=== PATIENT | female | born 1980 | race Caucasian/White ===

== ENCOUNTER 2024-07-11 10:20 | Outpatient (AMB) | payer OTHER, SELFPAY ==
--- NOTE | 2024-07-11 10:23 | A.OFFPC_ITS ---
Vital Signs 07/11/24 10:25 Height 5 ft 2 in Weight 164 lb 2 oz BMI 30.0 BP 96/60 Blood Pressure Location Lt brachial Position Sitting Pulse 67 Pulse Source Pulse Oximeter Pulse Oximetry (%) 100 Oxygen Delivery Method Room Air Intake Visit Reasons: Strategy Lead regular visit Stone And Concrete Washer Required: No Accompanied by: Self / Same As Patient Is last menstrual period known: Yes Last menstrual period: 06/25/24 Allergies pertussis vaccine,fluid Adverse Reaction (Severe, Verified 07/11/24 10:36) seizure Medication List - Last Reconciled 07/11/24 by Samuel Costello PA-C No Known Home Meds Tobacco use date assessed: 07/11/24 Dental Screening Dental Screen Date: 07/11/24 Did you have a dental visit in the last 12 months?: Yes Did you have a dental problem in the last 6 months where you did not have access to dental care?: No Was dental information given to patient?: Patient has dentist HPI Strategy Lead regular visit HPI Details Patient is a 43-year-old female here today for new patient visit. Previous PCP was Previous history of DVT in 2010 during , borderline high cholesterol. .. High cholesterol: Has been a family history finding. She reports her cholesterol has been elevated at her PCP office. Has been working on lifestyle and dietary modifications. .. Insomnia: Has been a long-term issue for her to which she has tried anxiety medication past though had side effects of weight gain. She has been using 10 mg of THC gummies for sleep which has been effective though she is concerned about the dependency on this substance. PLAN: She will try to slowly wean her dose of oral THC .. Family history factor 2 deficiency: She reports her sister had a pulmonary embolism was positive factor 2 deficiency and genetic testing. She would like to do her own genetic testing for evaluation. Mammogram: Does get mammo at [facility] Vaccines: does see a ERP CONSULTANT at [facility] getting regular paps Vaccine: Up-to-date with flu vaccine, COVID vaccine and tetanus vaccine [facility] Family History (Updated 07/11/24 @ 11:06 by Samuel Costello PA-C) Father Bladder cancer Diabetes Mother High cholesterol Sister Pulmonary embolism Factor II deficiency Social History (Updated 07/11/24 @ 10:41 by Samuel Costello PA-C) Housing: House Alcohol intake: current Alcohol intake frequency: holidays/special occasions only Patient Tobacco Use Status: Never used Tobacco e-Cigarette/Vaping Use: Never Used Substance Use Type: Marijuana service: No Current occupational status: employed Current occupation: [employer] Cognitive needs: No Hearing needs: No Vision needs: No Female Reproductive History Menstrual Date of last menstrual period: 06/25/24 Questionnaire PHQ-9 Over the last 2 weeks, how often have you been bothered by any of the following problems? 1. Little interest or pleasure in doing things: not at all 2. Feeling down, depressed, or hopeless: not at all 3. Trouble falling or staying asleep, or sleeping too much: several days 4. Feeling tired or having little energy: not at all 5. Poor appetite or overeating: not at all 6. Feeling bad about yourself - or that you are a failure or have let yourself or your family down: not at all 7. Trouble concentrating on things, such as reading the newspaper or watching television: not at all 8. Moving or speaking so slowly that other people could have noticed. Or the opposite - being so fidgety or restless that you have been moving around a lot more than usual: not at all 9. Thoughts that you would be better off or of hurting yourself in some way: not at all Total score: 1 Depression Screening Interpretation: Negative Depression Screening Done: Yes 58930 - PHQ-9 Billing: Yes Source: Developed by Drs. Jeremias Wagner, Heide Lloyd, Phi Moreira and colleagues, with an educational jimbo from [employer]. Thrive Questionnaire Date Thrive assessed: 07/11/24 I am a: Patient What is your living situation today?: I have a steady place to live Within the past 12 months, did the food you bought not last and you didn't have the money to get more?: Never true Within the past 12 months, did you worry whether your food would run out before you got money to buy more?: Never true Do you have trouble paying for medicines?: No Do you have trouble getting transportation to medical appointments?: No Do you have trouble paying your heating and electricity bill?: No Do you have trouble taking care of your child, family member or friend?: No Do you have trouble with day-to-day activities such as bathing, preparing meals, shopping, managing finances, etc.?: No Are you currently unemployed and looking for a job?: No Are you interested in more education?: No Please select the resources that you would like help with: None Currently or been in a relationship where the following occur: No concerns reported THRIVE Score: 0 AUDIT C Alcohol Use Questionnaire (AUDIT-C) 1. How often do you have a drink containing alcohol?: Monthly or less 2. How many drinks containing alcohol do you have on a typical day when you are drinking?: 1 or 2 3. How often do you have six or more drinks on one occasion?: Never Total Score: 1 MILANA-7 AMB Questionnaire MILNAA-7 Date MILANA - 7 assessed: 07/11/24 Feeling nervous, anxious, or on edge: 1 = Several days Not being able to stop or control worryin = Not at all Worrying too much about different things: 1 = Several days Trouble relaxin = Several days Being so restless that it is hard to sit still: 0 = Not at all Becoming easily annoyed or irritable: 0 = Not at all Feeling afraid as if something awful might happen: 1 = Several days Total MILANA-7 score (0-4 normal; 5-9 mild; 10-14 moderate; 15-21 severe): 4 Source: Developed by Drs. Jeremias Wagner, Heide Lloyd, Phi Moreira and colleagues, with an educational jimbo from [employer]. MILANA-7 Assessment Billing MILANA-7 Assessment Tool: MILANA-7 Assessment 21264 Physical exam (Primary Care) Vital Signs: Last Vital Signs Pulse 67 07/11/24 10:25 BP 96/60 07/11/24 10:25 Pulse Ox 100 07/11/24 10:25 Oxygen Delivery Method Room Air 07/11/24 10:25 BMI result Body Mass Index 30.0 Tobacco/Smoking Status: Tobacco use Status Tobacco use date assessed 07/11/24 07/11/24 10:32 Patient Tobacco Use Status Never used Tobacco 07/11/24 10:32 e-Cigarette/Vaping Use Never Used 07/11/24 10:32 PHQ-9: PHQ-9 Score PHQ-9: Total score 1 07/11/24 10:32 Depression Screening Interpretation: Negative Thrive Assessment: Date of Thrive Assessment Date Thrive assessed 07/11/24 07/11/24 10:32 Currently or been in a relationship where the following occur: No concerns reported Office Procedures Flu Questionnaire Does the patient have a severe egg allergy?: No Immunizations Fluarix Triv [id number] (PF) 45 mcg (15 mcg x 3)/0.5 mL IM syringe Performing Provider: Samuel Costello PA-C Performing Location: [facility] Documented (not given) by: SAGAR Lopez on 07/11/24 10:33 Reason Not Given: Received Previously Coding Level of Care Code New Pt Level 4 (48829) Diagnoses Primary insomnia F51.01 Insomnia type: primary Screening for diabetes mellitus (DM) Z13.1 Mixed hyperlipidemia E78.2 Hyperlipidemia type: mixed hyperlipidemia Family history of factor V deficiency Z83.2 H/O deep venous thrombosis Z86.718 Additional Codes MILANA-7 Assessment Billing - MILANA-7 Assessment Tool: MILANA-7 Assessment 12100 ([id number]) PHQ-9 - 93162 - PHQ-9 Billing: Yes ([id number]) Assessment & Plan Assessment & Plan (1) Insomnia: Code(s): G47.00 - Insomnia, unspecified Category: Medical Qualifiers: Insomnia type: primary Qualified Code(s): F51.01 - Primary insomnia Plan: Almaz has been suffering with insomnia for many years. Has been on anxiety medication in the past though has side effects of weight gain. She does use 10 mg THC gummies which do offer her sleep though is worried about did dependency. She will try to wean off of TCH gummies over the next few months to see if she can go without sleeping medication. Did offer to look into many different sleeping aids and prescription medication for sleep. We did consider referral to sleep specialist (2) Screening for diabetes mellitus (DM): Code(s): Z13.1 - Encounter for screening for diabetes mellitus Category: Medical Plan: As per HPI (3) HLD (hyperlipidemia): Code(s): E78.5 - Hyperlipidemia, unspecified Category: Medical Qualifiers: Hyperlipidemia type: mixed hyperlipidemia Qualified Code(s): E78.2 - Mixed hyperlipidemia Plan: She does have family history of high cholesterol. Will check fasting lipid panel. Goal LDL to be below 190 (4) Family history of factor V deficiency: Code(s): Z83.2 - Family history of diseases of the blood and blood-forming organs and certain disorders involving the immune mechanism Category: Medical Plan: Patient has a family history of clotting factor deficiency. She would like to see a linderman machine operator. She does have a personal history of DVT during her 1st . (5) H/O deep venous thrombosis: Code(s): Z86.718 - Personal history of other venous thrombosis and embolism Category: Medical Plan: As above Orders: Orders Influenza [id number] Immunization Today Z23 - Encounter for immunization [facility]. Panel Fast Today Z13.1 - Encounter for screening for diabetes mellitus Lipid Panel Today E78.5 - Hyperlipidemia, unspecified Complete Blood Count no Diff Today E78.5 - Hyperlipidemia, unspecified Referrals Genetics Referral Z83.2 - Family history of diseases of the blood and blood- forming organs and certain disorders involving the immune mechanism
[2024-07-11 10:25] VITALS: BP 96/60; PULSE 67; O2SAT 100
== END 2024-07-11 11:06 | disposition home or self-care (01) ==
PROVIDERS: PCP Physician Assistant; Visit Provider Physician Assistant
DX: F51.01 Primary insomnia (principal); Z13.1 Encounter for screening for diabetes mellitus; E78.2 Mixed hyperlipidemia; Z83.2 Family history of diseases of the blood and blood-forming organs and certain disorders involving the immune mechanism; Z86.718 Personal history of other venous thrombosis and embolism; Z23 Encounter for immunization

== ENCOUNTER → 2024-07-11 10:20 | Outpatient (BNVA) | payer OTHER, SELFPAY | PROVIDERS: PCP Physician Assistant; Visit Provider Physician Assistant | DX: E78.2 Mixed hyperlipidemia (principal); F51.01 Primary insomnia; Z83.2 Family history of diseases of the blood and blood-forming organs and certain disorders involving the immune mechanism; Z86.718 Personal history of other venous thrombosis and embolism | CPT/HCPCS: 90471; 96127; 99202 ==

== ENCOUNTER 2024-08-08 07:57 | Outpatient (REF) | payer OTHER, SELFPAY ==
--- OUTSIDE RECORDS SUMMARY | 2024-08-08 08:45 | XMS_ITS | Clinical Summary ---
Author Organization [facility] Address [address] [place] [address] Phone Care Team Providers Care Resizer Operator Name Role Phone Ramona Titus DO Primary Care Provider [phone] Allergies Active Allergy Reactions Criticality Noted Date Comments Pertussis Vaccines 07/30/2011 seizure Medications Medication Sig Dispensed Refills Start Date End Date Status ondansetron ODT (ZOFRAN-ODT) 4 mg disintegrating tablet DISSOLVE 1 TABLET IN MOUTH THREE TIMES A DAY FOR 5 DAYS 05/01/2024 Active ciprofloxacin-dexAMETHa sone (CIPRODEX) otic suspension 4 drops in affected ear(s) 2 times daily for 7 days. 01/06/2024 Active Active Problems Problem Noted Date Diagnosed Date Obesity (BMI 35.0-39.9 without comorbidity) 03/04 Weight gain 03/17/2022 Vitamin D deficiency 06/11/2020 Encounters Date Type Department Care Team Description 06/12/2024 9:45 AM EST Office Visit Obstetrics and Gynecology - [address] [phone] Gray Johnson CNM Encounter for annual physical examination excluding gynecological examination in a patient older than 17 years (Primary Dx) 06/08/2024 1:15 PM EST - 06/08/2024 11:59 PM EST Hospital Encounter Radiology Department - [address] [phone] Encounter for screening mammogram for breast cancer Discharge Disposition: Home or Self Care 05/08/2024 Telephone Obstetrics and Gynecology - [address] [phone] Nessa BermanSUAD 05/08/2024 Telephone Obstetrics and Gynecology [facility] [address] [place] [address] Yadiel Bonilla CNM from Last 3 Months Immunizations Name Administration Dates Next Due Influenza Quadravalent, MDCK , 0.5ml, preservative free (Flucelvax) 6mo and older 04/05/2023 Influenza trivalent, 0.5mL, preservative free (Fluarix; FluLaval; Fluzone) ages 6mo and older (Afluria) 3 years and older 04/06/2024,04/05/2022,03/27/2015,2013,03/15/2013,04/01/2011 Influenza, Unspecified 05/23/2021 Moderna SARS-CoV-2 COVID-19, mRNA, LNP-S, preservative free 05/15/2021,11/12/2020,10/13/2020 Td Tetanus diptheria (Tdvax) 7yo and older 2020 Surgical History Surgery Date Site/Laterality Comments SECTION 2013 PROCEDURE: HISTORICAL DELIVERY; COMMENT: x1 WISDOM TOOTH EXTRACTION PROCEDURE: HISTORICAL WISDOM TEETH EXTRACTION Medical History Medical History Date Comments DVT (deep venous thrombosis) [facility]) 03/22/11 DX:DVT (deep venous thrombosis) ([facility]); COMMENT: Left leg Anxiety state DX:Anxiety state Family History Medical History Relation Name Comments Bladder Cancer Father early 60s Diabetes Father Breast cancer Mother's side m gr grmr over 90 maternal great grandmother Colon cancer Neg Hx Ovarian cancer Neg Hx Relation Name Status Comments Brother Alive Father Alive Maternal Grandfather Maternal Grandmother Alive Mother Alive Mother's side m gr grmr over 90 Paternal Grandfather Paternal Grandmother Sister Alive Social History Tobacco Use Types Packs/Day Years Used Date Smoking Tobacco: Former Smokeless Tobacco: Never Alcohol Use Standard Drinks/Week Comments Yes 0 (1 standard drink = 0.6 oz pur e alcohol) Sex and Gender Information Value Date Recorded Sex Assigned at Not on file Gender Identity Not on file Sexual Orientation Not on file Job Start Date Occupation Industry Not on file Not on file Not on file Obstetrics History Para Term AB IAB SAB Ectopic Multiple Livin g Live Births 2 2 2 2 2 Date Outcome GA Total Labor Labor/2nd/3rd Weight Sex Type Anes PTL Belkis A1 A5 Name Clin 2010 Term 39w 1d 13h 03m/ 3374 g (119 oz) F Vag-S pont Epidur al Livin g 9 10 Anthony Pacheco ey Delivery Location:[facility] Comments:dvt at 6 dhaval hs 2013 Term 38w 6d 3515 g (124 oz) M CS-LT ranv Spinal Livin g [address] meng carrera Delivery Location:[facility] Comments:Breech Last Filed Vital Signs Vital Sign Reading Time Taken Comments Blood Pressure 121/66 06/12/2024 9:39 AM EST Pulse 65 06/12/2024 9:39 AM EST Temperature - - Respiratory Rate - - Oxygen Saturation - - Inhaled Oxygen Concentration - - Weight 72.8 kg (160 lb 9.6 oz) 06/12/2024 9:39 A M EST Height 157.5 cm (5' 2 ) 04/13/2024 9:05 AM EDT Body Mass Index 29.37 04/13/2024 9:05 AM EDT Plan of Treatment Health Maintenance Due Date Last Done Comments Hepatitis B Vaccines (1 of 3 - 19+ 3-dose series) 2000 Depression Screening 06/12/2022 HIV Screening 06/12/2022 Hepatitis C Screening 06/12/2022 Social Influencers of Health Screening 06/12/2022 COVID-19 Vaccine ( season) 2024 06/10/2021, 05/15/2021, 11/12/2020, Additional history exists Cervical Cancer Screening: HPV 07/08/2025 07/08/2020 Breast Cancer Screening 06/08/2026 06/08/20 24, 06/06/2023, 05/25/2022 Cholesterol Screening (Lipid Panel) 04/13/2029 04/13/2024, 04/13/2024 DTaP,Tdap,and Td Vaccines (2 - Td or Tdap) 2030 2020 Influenza Vaccine Completed 04/06/2024, , 04/05/2022, Additional history exists HIB Vaccines Aged Out No longer eligi ble based on patient's age to complete this topic HPV Vaccines Aged Out No longer eligi ble based on patient's age to complete this topic Hepatitis A Vaccines Aged Out No long er eligible based on patient's age to complete this topic IPV Vaccines Aged Out No longer eligi ble based on patient's age to complete this topic MMR Vaccines Aged Out No longer eligi ble based on patient's age to complete this topic Meningococcal ACWY Vaccine Aged Out N o longer eligible based on patient's age to complete this topic Pneumococcal Vaccine: Pediatrics (0 to 5 Years) and At-Risk Patients (6 to 64 Years) Aged Out No longer eligible based on patient's age to complete this topic RSV Immunization Patients Under 20 months Aged Out No longer eligible based on patient's age to complete this topic Varicella Vaccines Aged Out No longer eligible based on patient's age to complete this topic Procedures Procedure Name Priority Date/Time Associated Diagnosis Comments MG MAMMO DIGITAL SCREENING W TAWANDA BILAT Routine 06/08/2024 1:42 PM EST Encounter for screening mammogram for breast cancer LIPID PANEL Routine 04/13/2024 HM HPV Routine 07/08/2020 from Last 3 Months or Most Recently Relevant to Health Maintenance Results * MG Mammo Digital Screening w Tawanda bilat (06/08/2024 1:42 PM EST) Anatomical Region Laterality Modality Breast Bilateral Mammography 06/08/2024 6:26 PM EST Impressions 06/08/2024 6:27 PM EST No mammographic evidence of malignancy. BREAST DENSITY: C - The breasts are heterogeneously dense which may obscure small masses. BI-RADS CATEGORY: 1 - NEGATIVE RECOMMENDATION: Screening bilateral mammogram is recommended in 1 year. MAMMO LOCATION: [facility], [address] [place] [address], [id number], . -------- FINAL REPORT -------- Dictated By: Farzaneh Cooper Dictated Date: 06/08/2024 18:26 ET Assigned Physician: Farzaneh Cooper Reviewed and Electronically Signed By: Farzaneh Cooper Signed Date: 06/08/2024 18:27 ET Workstation ID: [id number] Transcribed By: Self Edit Transcribed Date: 06/08/2024 18:26 ET Narrative 06/08/2024 6:27 PM EST EXAM: Screening Mammogram CLINICAL: 43 years old, Female, routine annual exam. COMPARISON: 06/06/2023 and 05/25/2022 TECHNIQUE: Bilateral MLO and CC views were obtained digitally with 3-D mammogram (digital breast tomosynthesis). Computer-aided detection was utilized in evaluation of this exam (CAD). FINDINGS: No new suspicious mass, architectural distortion, or suspicious calcifications. Procedure Note Farzaneh Cooper MD - 06/08/2024 EXAM: Screening Mammogram CLINICAL: 43 years old, Female, routine annual exam. COMPARISON: 06/06/2023 and 05/25/2022 TECHNIQUE: Bilateral MLO and CC views were obtained digitally with 3-Dmammogram (digital breast tomosynthesis). Computer-aided detection wasutilized in evaluation of this exam (CAD). FINDINGS: No new suspicious mass, architectural distortion, or suspiciouscalcifications. IMPRESSION: No mammographic evidence of malignancy. BREAST DENSITY: C - The breasts are heterogeneously dense which mayobscure small masses. BI-RADS CATEGORY: 1 - NEGATIVE RECOMMENDATION: Screening bilateral mammogram is recommended in 1 year. MAMMO LOCATION: [facility], [address] [place] [address], [id number], . -------- FINAL REPORT -------- Dictated By: Farzaneh Cooper Dictated Date: 06/08/2024 18:26 ET Assigned Physician: Farzaneh Cooper Reviewed and Electronically Signed By: Farzaneh Cooper Signed Date: 06/08/2024 18:27 ET Workstation ID: [id number] Transcribed By: Self Edit Transcribed Date: 06/08/2024 18:26 ET Samuel DAVENPORT IMG BI PROCEDURES * (ABNORMAL) Lipid panel (04/13/2024) LDL/HDL Ratio 4 0 - 4 Triglycerides 127 0 - 150 mg/dL Cholesterol 230(A) 0 - 200 mg/dL HDL 54 40 mg/dL LDL Cholesterol 151(A) 0 - 100 mg/dL Blood Venous blood specimen / Unknown Historical Provider LAB BLOOD ORDERAB LES * Cervical Cancer Screening: HPV (07/08/2020) [facility] Cervical Cancer Screening: HPV Negative, Abstracted Historical Provider HEALTH MAINTENANC E from Last 3 Months or Most Recently Relevant to Health Maintenance Care Teams Resizer Operator Relationship Specialty Start Date End Date Ramona Titus DO [address] [place] [address] PCP - General Internal Medicine 07/27/21
[2024-08-08 09:29] LABS: Hematocrit 39.2 % (37.0-47.0); Hemoglobin 12.9 g/dl (12.0-16.0); Mean Corpuscular HGB Conc 32.9 g/dl (31.0-35.0); Mean Corpuscular Hemoglobin 26.3 pg (27.0-33.0); Mean Corpuscular Volume 79.8 fL (80.0-98.0); Mean Platelet Volume 9.8 fL (9.4-12.3); Platelet Count 219 X10*3/uL (160-400); Red Blood Count 4.91 X10*6/uL (4.20-5.50); White Blood Count 6.3 X10*3/uL (4.8-10.8)
[2024-08-08 09:59] LABS: Alanine Aminotransferase 24 U/L (0-31); Albumin Level 4.5 g/dL (3.5-5.0); Alkaline Phosphatase 48 U/L (39-117); Anion Gap 12 (12-20); Aspartate Amino Transferase 23 U/L (5-31); Bilirubin Total 0.8 mg/dL (0.0-1.0); Blood Urea Nitrogen 10 mg/dL (9-16); Calcium 9.5 mg/dL (8.4-10.2); Carbon Dioxide 27 mmol/L (22-29); Chloride 105 mmol/L (96-108); Cholesterol 202 mg/dL (<200); Estimated Glomerular Filt Rate > 60; Glucose Fasting 91 mg/dL (60-99); HDL Cholesterol 50 mg/dL (>40); LDL Cholesterol Calculated 126 mg/dL (<100); Potassium 4.6 mmol/L (3.3-5.1); Sodium 139 mmol/L (135-145); Total Protein 7.4 g/dL (6.5-8.0); Triglycerides 132 mg/dL (<150)
== END 2024-08-08 07:58 | disposition home or self-care (01) ==
LOC: HO.LAB 07:57
PROVIDERS: PCP Physician Assistant; Visit Provider Physician Assistant
DX: M53.3 Sacrococcygeal disorders, not elsewhere classified (principal); M54.16 Radiculopathy, lumbar region; M25.551 Pain in right hip; M25.552 Pain in left hip; E78.5 Hyperlipidemia, unspecified; Z13.1 Encounter for screening for diabetes mellitus
CPT/HCPCS: 36415; 80053; 80061; 85027